=== PATIENT | male | born 1990 | race Caucasian/White ===

== ENCOUNTER 2017-05-31 15:05 | Emergency (ER) | payer BC ==
[2017-05-31] MEDS ORDERED: Adacel (T-DAP) 0.5 ML VIAL ONE (15:17)
[2017-05-31] MEDS ORDERED: ceFAZolin Sodium 1 GM VIAL ONE (15:27)
[2017-05-31] MEDS ORDERED: Sodium Chloride 0.9% 100 ML ONE (15:28)
[2017-05-31] MEDS ORDERED: Ibuprofen 200 MG TAB ONE (15:42)
[2017-05-31] MEDS ORDERED: traMADol HCl 50 MG TAB ONE (15:42)
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
[2017-05-31] MEDS ORDERED: Bacitracin Zinc 1 Packet ONE (16:30)
== END 2017-05-31 16:40 | disposition home or self-care (01) ==
LOC: NAV ERS 15:05
DX: S81.031A Puncture wound without foreign body, right knee, initial encounter (principal); F17.210 Nicotine dependence, cigarettes, uncomplicated; Z23 Encounter for immunization; W29.4XXA Contact with nail gun, initial encounter
CPT/HCPCS: 90471; 90715; 96365; J0690; J7050

== ENCOUNTER 2020-05-14 15:44 | Emergency (ER) | payer BC, OTHER, SELFPAY ==
[2020-05-14] MEDS ORDERED: Lidocaine 1% (PF) 30 ML VIAL ONE (16:05)
[2020-05-14] MEDS ORDERED: Adacel (T-DAP) 0.5 ML SYRINGE ONE (16:19)
== END 2020-05-14 16:27 | disposition home or self-care (01) ==
LOC: NAV ERS 15:44
DX: S01.511A Laceration without foreign body of lip, initial encounter (principal); F17.210 Nicotine dependence, cigarettes, uncomplicated; X58.XXXA Exposure to other specified factors, initial encounter
CPT/HCPCS: 40650; 90471; 90715; J2001